=== PATIENT | male | born 1985 | race Caucasian/White ===

== ENCOUNTER 2024-08-15 00:12 | Day surgery (SDC) | payer OTHER, SELFPAY ==
[2024-08-11 08:34] VITALS: BMI 33.5
[2024-08-15 08:54] VITALS: BP 120/78; PULSE 79; RESP 18; TEMP 36.4; O2SAT 98; BMI 32.1
[2024-08-15] MEDS: LACTATED RINGERS 1,000 ML 150 ML IV CONT (09:03)
--- NOTE | 2024-08-15 09:37 | WPDANESEPPF ---
Anes - Initial Pre Proc Eval Procedure: Operation Date: 08/15/24 10:30 Proposed Procedures p Colonoscopy - Saturnino Lowe MD Date/Time: 08/15/24 09:37 Surgeon: Saturnino Lowe MD Pre Op Diagnosis: Diarrhea, unspecified Patient Data Age: 38 Gender: M Height: 1.73 m Weight: 96 kg Last Vital Signs Temp 97.5 F L 08/15/24 08:54 Pulse 79 08/15/24 08:54 Resp 18 08/15/24 08:54 BP 120/78 08/15/24 08:54 Pulse Ox 98 08/15/24 08:54 O2 Del Method Room Air 08/15/24 08:54 Allergies Allergy/AdvReac Type Severity Reaction Status Date / Time No Known Allergies Allergy Verified 08/15/24 08:53 Home Medications ?Medication ?Instructions ?Recorded ?Confirmed ?Type No Home Medications 08/11/24 08/11/24 History Patient hx anesthesia problems: none Family hx anesthesia problems: none Results Review: All pre-operative results and documents have been reviewed as part of the pre-operative evaluation. COUNT INCLUDES [facility] Social History Social History Smoking status: Never smoker Alcohol intake: current Alcohol use details: Rarely Living arrangements: alone Anes - Eval Final PreProcedure Day of Procedure 08/15/24 09:37 Patient weight: obese Heart: regular rate and rhythm Lungs: clear to auscultation Airway: Mallampati scale class II Neurological: alert and oriented Last oral intake: >/= 8 hours ASA classification: II Emergent: no Anesthetic plan: proceed Anesthesia type and monitoring: general GIVS and standard monitoring Results Review: All pre-operative results and documents have been reviewed as part of the pre-operative evaluation. Informed Consent: The patient's anesthetic plan and its attendant risks and benefits were discussed with the patient/family/POA. Questions were solicited and answers provided to the satisfaction of the patient/family/POA.
--- NOTE | 2024-08-15 09:51 | PM.HPGS ---
History of Present Illness History of Present Illness Consent: Risks, benefits, and alternatives have been discussed and questions answered. Patient agrees to proceed with procedure. Chief complaint: Diarrhea, unspecified Narrative: Andrei Levi is a 38 year old male here with first screening colonoscopy, great grandparent with colon cancer, uncle with colon cancer and other family members with colon polyps. Review of Systems Review of Systems: All systems reviewed & are unremarkable except as noted in HPI and below PMFSH Past Medical History Medical History (Updated 08/15/24 @ 09:53 by Saturnino Lowe MD) Family history of colon cancer Social History Social History Smoking status: Never smoker Alcohol intake: current Alcohol use details: Rarely Living arrangements: alone Meds Home Medications and Allergies Home Medications ?Medication ?Instructions ?Recorded ?Confirmed ?Type No Home Medications 08/11/24 08/11/24 History Allergies Allergy/AdvReac Type Severity Reaction Status Date / Time No Known Allergies Allergy Verified 08/15/24 08:53 Vital Signs Vital Signs - 24 hr 08/15/24 08:54 Temperature 97.5 F L Pulse Rate 79 Respiratory Rate 18 Blood Pressure 120/78 Pulse Oximetry 98 Oxygen Delivery Room Air Exam Const: General: comfortable and no acute distress HENMT: Face/Nose/Sinus: Normal nares present Eyes: General: appearance normal, both eyes and all related structures Neck: Neck: no JVD Resp: Auscultation: clear to auscultation bilaterally Cardio: Rate: regular rate Rhythm: regular rhythm GI: Inspection: non-distended GI Palp: Yes Soft to palpation Skin: General skin exam: normal color Neuro: General: gait normal Speech: normal speech Extrem: General: normal to inspection Psych: Mental Status: mental status grossly normal Assessment and Plan Assessment and plan (1) Family history of colon cancer: Code(s): Z80.0 - Family history of malignant neoplasm of digestive organs Status: Acute Assessment and Plan: colonoscopy
[2024-08-15 10:06] VITALS: BP 98/64; PULSE 75; RESP 17; O2SAT 96
[2024-08-15 10:16] VITALS: BP 98/61; PULSE 69; RESP 26; O2SAT 96
[2024-08-15 10:26] VITALS: BP 103/63; PULSE 60; RESP 26; O2SAT 97
== END 2024-08-15 10:44 | disposition home or self-care (01) ==
PROVIDERS: PCP Family Medicine; Referring Provider Family Medicine; Visit Provider Internal Medicine Gastroenterology
PROC: 0DJD8ZZ Inspection of Lower Intestinal Tract, Via Natural or Artificial Opening Endoscopic (ICD-10-PCS; CPT 45378; principal; 2024-08-15 10:30)
DX: D12.0 Benign neoplasm of cecum (principal); K64.8 Other hemorrhoids; E66.9 Obesity, unspecified; Z68.32 Body mass index [BMI] 32.0-32.9, adult; Z83.719 Family history of colon polyps, unspecified; Z80.0 Family history of malignant neoplasm of digestive organs
CPT/HCPCS: 45385; 88305; J2003; J2704; J7120